=== PATIENT | male | born 1950 | race Caucasian/White ===

== ENCOUNTER 2018-05-25 09:19 | Emergency (ER) | payer MEDICARE, OTHER ==
[~2018-05-25] VITALS: Ht 180.3 cm; Wt 99.8 kg
[~2018-05-25 09:19] MED LIST: ACHD5005 PO; CYCL10TA9 PO; DCS100C PO; ERGO400C PO; LISI1TAB PO; MELO-195 PO; METH-53 PO; MULT1CAP27 PO; PRD10T PO
[2018-05-25] MEDS ORDERED: VALA1000 PO (10:27)
--- NOTE | 2018-05-25 10:29 | ED GU-Male ---
General Chief Complaint: -Male Stated Complaint: RASH ON GROIN AREA Nursing Triage Note: ARRIVED VIA AMB TO ROOM 06. STATES YEARS AGO HE HAD HERPES AND THIS PAST WEEK HE BROKE OUT AGAIN. Source: patient Exam Limitations: no limitations History of Present Illness Date Seen by Provider: May 25, 2018 Time Seen by Provider: 10:10 Initial Comments Here with complaint of outbreak of herpes on his penis. Has outbreaks once or twice a year for the past 14 years. Denies other concerns. Does not have the medication and his doctor is not an office today. Timing/Duration: getting worse, other (to 3 days) Severity/Quality: moderate, burning Location: other (penis shaft) Radiation: none Activities at Onset: none Associated Symptoms: denies symptoms Allergies and Home Medications Allergies Coded Allergies: No Known Drug Allergies (Unverified , 11/27/10) Home Medications Hctz/Lisinopril 1 Each Tablet, 1 EACH PO DAILY, (Reported) Patient Home Medication List Home Medication List Reviewed: Yes Review of Systems Review of Systems Constitutional: see HPI; No chills, No fever Respiratory: no symptoms reported Cardiovascular: no symptoms reported Gastrointestinal: no symptoms reported Genitourinary: see HPI; denies dysuria, denies hematuria Skin: see HPI, change in color, lesions Past Oueifjq-Enkuwv-Wnmiyu Hx Past Med/Social Hx: Reviewed Nursing Past Med/Soc Hx Patient Social History Alcohol Use: Denies Use Recreational Drug Use: No Smoking Status: Never a Smoker Recent Foreign Travel: No Contact w/Someone Who Travel: No Recent Infectious Disease Expo: No Recent Hopitalizations: No Past Medical History Surgeries: Yes (1993 hemmroid surgery) Respiratory: No Cardiac: Yes Hypertension Neurological: No Reproductive Disorders: No Sexually Transmitted Disease: Yes (HERPES) Genitourinary: No Gastrointestinal: No Musculoskeletal: No Endocrine: No Psychosocial: No Integumentary: Yes Herpes Blood Disorders: No Family Medical History Reviewed Nursing Family Hx Physical Exam Vital Signs Vital Signs - First Documented 05/25/18 09:22 Temp 98.7 Pulse 68 Resp 16 B/P (MAP) 138/85 (102) Pulse Ox 97 O2 Delivery Room Air Capillary Refill : Less Than 3 Seconds Height, Weight, BMI Height: 5'11.00" Weight: 220lbs. oz. 99.871322md; BMI Method:Stated General Appearance: WD/WN, no apparent distress Cardiovascular: regular rate, rhythm, no murmur Respiratory: lungs clear, normal breath sounds Male: erythema (of small ulcers and redness to the preop shaft on the left) Back: normal inspection, no CVA tenderness, no vertebral tenderness Progress/Results/Core Measures Suspected Sepsis Recent Fever Within 48 Hours: No Infection Criteria Present: None New/Unexplained Altered Menta: No Sepsis Screen: No Definite Risk SIRS Temperature:98.7 Pulse: 68 Respiratory Rate: 16 Blood Pressure 138 /85 Mean: 102 Results/Orders Vital Signs/I&O 05/25/18 09:22 Temp 98.7 Pulse 68 Resp 16 B/P (MAP) 138/85 (102) Pulse Ox 97 O2 Delivery Room Air Capillary Refill : Less Than 3 Seconds Blood Pressure Mean: 102 Progress Note : Progress Note Seen and evaluated. Discharge home with return precautions. Patient verbalize understanding instructions and agreement with plan. Departure Impression Primary Impression: Herpes genitalis in men Disposition: 01 HOME, SELF-CARE Condition: Stable Departure-Patient Inst. Decision time for Depature: 10:25 Referrals: GEORGIA CASTELLANOS MD (PCP/Family) Primary Care Physician Patient Instructions: Genital Herpes (DC) Add. Discharge Instructions: All discharge instructions reviewed with patient and/or family. Voiced understanding. Take medications as directed. You may take ibuprofen 800 mg every 8 hours as needed for pain. You may take Tylenol/acetaminophen 1000 mg every 8 hours as needed for pain. Follow up with your DrAl in a few days for recheck. Return for worse pain, fever, vomiting, weakness, breathing problems or other concerns as needed. Scripts Valacyclovir HCl (Valacyclovir) 1,000 Mg Tablet 1000 MG PO DAILY, #5 TAB 3 Refills Prov: LILLI GUTIÉRREZ MD 05/25/18 LILLI GUTIÉRREZ MD May 25, 2018 10:29
[2018-05-25 10:35] VITALS: BP 138/85
== END 2018-05-25 10:35 | disposition home or self-care (01) ==
LOC: EDUNIT# 09:19 → ER 09:20
DX: A60.00 Herpesviral infection of urogenital system, unspecified (principal); I10 Essential (primary) hypertension; Z98.890 Other specified postprocedural states
CPT/HCPCS: 99283

== ENCOUNTER → 2020-10-09 | Outpatient (CLI) | payer MEDICARE ==
[~2020-10-09] MED LIST changes: +VALA10007 PO
--- NOTE | 2020-10-09 16:56 | Diagnostic Imaging Report ---
INDICATION: Back pain EXAM: Thoracic spine FINDINGS: AP and lateral views of the thoracic spine show normal vertebral body height and alignment. Disc spaces are normal. There is spondylosis with anterior osteophyte formation. IMPRESSION: Spondylosis of the thoracic spine with minimal curvature convex to the right. No acute abnormality is seen. Dictated by: Dictated on workstation # [id number]
--- NOTE | 2020-10-09 18:27 | Diagnostic Imaging Report ---
INDICATION: Back pain EXAM: Lumbar spine AP and lateral views of the lumbar spine show normal vertebral body heights and alignment. Intervertebral disc spaces are normal. There is spondylosis with anterior bridging osteophytes at T12-L1 and L1-L2. IMPRESSION: Spondylosis deformans. No acute abnormality is seen. Dictated by: Dictated on workstation # [id number]
== END ==
LOC: RAD 13:46
PROVIDERS: ATTEND Family Medicine
DX: M47.814 Spondylosis without myelopathy or radiculopathy, thoracic region (principal); M47.816 Spondylosis without myelopathy or radiculopathy, lumbar region
CPT/HCPCS: 72072; 72100

== ENCOUNTER → 2021-11-22 | Outpatient (CLI) | payer MEDICARE, OTHER ==
[2021-11-22 11:54] LABS: BASOPHILS % (AUTO) 1 % (0-10); EOSINOPHILS # (AUTO) 0.1 10^3/uL (0.0-0.3); EOSINOPHILS % (AUTO) 1 % (0-10); HEMATOCRIT 46 % (40-54); HEMOGLOBIN 15.5 g/dL (13.3-17.7); LYMPHOCYTES # (AUTO) 1.1 10^3/uL (1.0-4.0); LYMPHOCYTES % (AUTO) 12 % (12-44); MEAN CORPUSCULAR HEMOGLOBIN 32 pg (25-34); MEAN CORPUSCULAR HGB CONC 34 g/dL (32-36); MEAN CORPUSCULAR VOLUME 93 fL (80-99); MEAN PLATELET VOLUME 9.2 fL (9.0-12.2); MONOCYTES % (AUTO) 12 % (0-12); NEUTROPHILS # (AUTO) 6.6 10^3/uL (1.8-7.8); NEUTROPHILS % (AUTO) 75 % (42-75); PLATELET COUNT 196 10^3/uL (130-400); WHITE BLOOD COUNT 8.8 10^3/uL (4.3-11.0)
[2021-11-22 12:31] LABS: CREATININE SERUM 0.88 MG/DL (0.60-1.30); POTASSIUM 3.8 MMOL/L (3.6-5.0)
[2021-11-22 12:32] LABS: ALBUMIN 4.3 GM/DL (3.2-4.5); BILIRUBIN,TOTAL 2.1 MG/DL (0.1-1.0)
--- NOTE | 2021-11-22 13:35 | Diagnostic Imaging Report ---
INDICATION: RESP FAILURE - COUGHING WHEEZING COMPARISON: None. FINDINGS: Frontal and lateral views of the chest demonstrate normal heart size and pulmonary vascularity. The lungs are clear. There are no signs of infiltrate, pleural effusions or pneumothoraces. The visualized osseous structures show no acute abnormalities. IMPRESSION: 1. No acute process. No signs of infiltrates, effusions or pneumothoraces. Dictated by: Dictated on workstation # [id number]
== END ==
LOC: RAD 11:23
PROVIDERS: ATTEND Family Medicine
DX: J96.90 Respiratory failure, unspecified, unspecified whether with hypoxia or hypercapnia (principal)
CPT/HCPCS: 36415; 71046; 80053; 85025

== ENCOUNTER → 2022-04-05 | Outpatient (CLI) | payer MEDICARE, OTHER ==
--- NOTE | 2022-04-05 14:41 | Diagnostic Imaging Report ---
INDICATION: Wheezing, shortness of breath. PA and lateral chest obtained at 10:42 a.m. compared to 11/22/2021. Heart and mediastinal silhouette are normal appearance. Lungs are clear. There is no pneumothorax or pleural fluid. IMPRESSION: Negative chest. Dictated by: Dictated on workstation # [id number]
== END ==
LOC: RAD 10:28
DX: R06.2 Wheezing (principal); R06.02 Shortness of breath
CPT/HCPCS: 71046

== ENCOUNTER → 2023-03-11 | Outpatient (CLI) | payer MEDICARE, OTHER ==
--- NOTE | 2023-03-11 18:46 | Diagnostic Imaging Report ---
INDICATION: Shoulder pain, fall. COMPARISON: None available. TECHNIQUE: Three radiographs of the right shoulder dated 03/11/2023. FINDINGS: Mild degenerative changes involving the acromioclavicular joint and glenohumeral joint. Glenohumeral joint relationship is well maintained. No acute fracture or dislocation. No destructive osseous process. Subacromial space is well maintained. The visualized right lung appears clear. No suspicious radiopaque foreign body. IMPRESSION: No acute osseous abnormality with low-grade degenerative changes for age. Dictated by: Dictated on workstation # [id number]
== END ==
LOC: RAD 11:05
PROVIDERS: ATTEND Family Medicine
DX: M19.011 Primary osteoarthritis, right shoulder (principal); S49.91XA Unspecified injury of right shoulder and upper arm, initial encounter; X58.XXXA Exposure to other specified factors, initial encounter
CPT/HCPCS: 73030